=== PATIENT | female | born 1940 | race Caucasian/White ===

== ENCOUNTER 2021-12-27 18:35 | Observation (INO) | payer MEDICARE, BC ==
[~2021-12-27] VITALS: Ht 165.1 cm; Wt 88.4 kg
[2021-12-27 18:35] VITALS: BP 118/55; PULSE 67; TEMP 99.1
--- NOTE | 2021-12-27 18:35 | NUR ---
PT ADMITTED PER EMS STRETCHER TO ROOM 329. HAS PRBC'S INFUSING TO RFA IV SITE WITHOUT PROBLEM. HAS INT TO LFA. PT IS ALERT AND ORIENTED X4. ASKING FOR WATER.
[2021-12-27] MEDS ORDERED: DIOVAN HCT 25 M1 TA1 PO (19:52)
[2021-12-27] MEDS ORDERED: ADALAT CC30 MG PO (19:53)
[2021-12-27] MEDS ORDERED: ORENCIA CL125 MG/1 M SQ (19:53)
[2021-12-27] MEDS ORDERED: PLAVIX 75MG TAB75 MG PO (19:54)
[2021-12-27] MEDS ORDERED: BYSTOLIC5 MG PO (19:55)
[2021-12-27] MEDS ORDERED: K-TAB10 PO (19:55)
[2021-12-27] MEDS ORDERED: PRAVACHOL 20MG20 MG PO (19:56)
[2021-12-27] MEDS ORDERED: PREDNISONE 5MG5 MG PO (19:56)
[2021-12-27] MEDS ORDERED: ASPIRIN 81M81 MG/TA2 PO (19:57)
[2021-12-27] MEDS ORDERED: MASON NATURAL1200 MG PO (19:58)
--- NOTE | 2021-12-27 20:00 | NUR ---
ADMISSION QUESTIONS AND ASSESSMENT COMPLETED. UNIT OF BLOOD INFUSED. PT ASSISTED INTO HOSPITAL GOWN, STANDS WITHOUT DIZZINESS. IS ALERT AND ORIENTED X4.
--- NOTE | 2021-12-27 21:15 | NUR ---
IVF INITIATED TO LFA SITE, NO REDNESS OR SWELLING NOTED. HS MED PRAVACHOL GIVEN. IV PROTONIX ALSO GIVEN. PT TO HAVE IVF INFUSING AND WILL BE NPO AFTER MIDNIGHT.
[2021-12-27 22:16] LABS: HEMATOCRIT 27.6 % (37.0-47.0); HEMOGLOBIN 9.3 g/dl (12.5-16.0)
[2021-12-27 23:08] VITALS: BP 100/50; PULSE 63; TEMP 97.9
[2021-12-28] VITALS (13 sets, daily range): BP systolic 102–142; BP diastolic 41–73; PULSE 52–80; TEMP 97.6–98.8
--- NOTE | 2021-12-28 | NUR ---
PT NPO FOR POSSIBLE EGD TODAY.
--- NOTE | 2021-12-28 06:00 | NUR ---
PT HAS NOT HAD ANY EMESIS OR STOOLS THIS SHIFT.
[2021-12-28 06:39] LABS: BASO # 0.1 K/mm3 (0.0-0.2); BASO % 0.6 % (0.0-2.0); EOS # 0.1 K/mm3 (0.0-0.7); EOS % 1.3 % (0.0-4.0); GRAN # 4.3 K/mm3 (1.4-6.5); GRAN % 54.6 % (42.2-75.2); LYMPH # 2.6 K/mm3 (1.2-3.4); LYMPH % 33.2 % (20.0-51.0); MEAN CELL VOLUME 93 fl (80.0-100.0); MEAN CORPUSCULAR HGB CONC 32 g/dl (33.0-37.0); MEAN PLATELET VOLUME 11.5 fl (7.4-10.4); MONO # 0.8 K/mm3 (0.1-0.6); MONO % 9.9 % (1.7-9.3); PLATELET COUNT 199 K/mm3 (130-400); RED BLOOD COUNT 2.78 M/mm3 (4.10-5.30); REDCELL DISTRIBUTION WIDTH-CV 15.1 % (11.5-14.5)
[2021-12-28 06:45] LABS: HEMATOCRIT 25.9 % (37.0-47.0); HEMOGLOBIN 8.4 g/dl (12.5-16.0); MEAN CORPUSCULAR HEMOGLOBIN 30 pg (27-31)
[2021-12-28 06:57] LABS: CALCIUM 8.1 mg/dL (8.4-10.2); CREATININE, serum 0.71 mg/dL (0.57-1.11); MAGNESIUM 2.2 mg/dL (1.6-2.6); POTASSIUM 3.5 mmol/L (3.5-4.5)
--- NOTE | 2021-12-28 10:45 | NUR ---
Sales Broker met with patient to discuss discharge planning. Patient lives alone in [place] and sees Dr. Rivera for primary care. Patient obtains medications from [facility] in [place] with no difficulties and does not use any DME. Patient reports independence with ADLS and plans to return home at time of discharge. Patient advised she has DPOA-HC that designates her nephew, Terrell (ph#[phone]) who is a captain for [employer]. Patient is working on having her neighbor/best friend, Carole (ph#[phone]) bring in a copy of DPOA-HC. Discharge Plan: Home
--- NOTE | 2021-12-28 11:46 | NUR ---
PT ARRIVED TO THE FLOOR FROM [facility]IT AT 1055, INFORMED THAT SHE COULD RESUME HER DIET ORDERED, VITALS TAKEN, WILL CONTINUE TO MONITOR.
[2021-12-28 18:20] LABS: HEMATOCRIT 23.8 % (37.0-47.0); HEMOGLOBIN 7.9 g/dl (12.5-16.0)
--- NOTE | 2021-12-28 18:45 | NUR ---
NOTED EVENING HGB OF 7.9, CALLED RESULT TO HOSPITALIST, NO NEW ORDERS AT THIS TIME.
--- NOTE | 2021-12-28 19:30 | NUR ---
PT SBA TO BATHROOM, HAS LOOSE FORMED BLACK STOOL. PT DENIES DIZZINESS OR WEAKNESS WHEN UP. HAS IVF TO RFA, INFUSING WITHOUT PROBLEM.
--- NOTE | 2021-12-28 21:00 | NUR ---
PT HAS ANOTHER SOFT FORMED BLACK STOOL, NOT TARRY IN APPEARANCE. DENIES PAIN OR NAUSEA. HS MED GIVEN.
--- NOTE | 2021-12-29 00:20 | NUR ---
HGB=7.6, PT HAS NOT HAD ANY FURTHER STOOLS.
[2021-12-29 00:40] LABS: HEMATOCRIT 23.2 % (37.0-47.0); HEMOGLOBIN 7.6 g/dl (12.5-16.0)
[2021-12-29 03:19] VITALS: BP 123/60; PULSE 68; TEMP 98.9
--- NOTE | 2021-12-29 06:02 | NUR ---
NO FURTHER STOOLS THIS SHIFT. LABS DRAWN. IVF CONTINUE TO RFA.
[2021-12-29 06:09] LABS: BASO % 0.4 % (0.0-2.0); EOS # 0.2 K/mm3 (0.0-0.7); EOS % 3.3 % (0.0-4.0); GRAN # 2.5 K/mm3 (1.4-6.5); GRAN % 51.6 % (42.2-75.2); LYMPH # 1.7 K/mm3 (1.2-3.4); MEAN CELL VOLUME 95 fl (80.0-100.0); MEAN CORPUSCULAR HGB CONC 33 g/dl (33.0-37.0); MEAN PLATELET VOLUME 10.9 fl (7.4-10.4); MONO # 0.5 K/mm3 (0.1-0.6); MONO % 9.3 % (1.7-9.3); PLATELET COUNT 157 K/mm3 (130-400); RED BLOOD COUNT 2.39 M/mm3 (4.10-5.30); REDCELL DISTRIBUTION WIDTH-CV 14.6 % (11.5-14.5)
[2021-12-29 06:22] LABS: HEMATOCRIT 22.7 % (37.0-47.0); HEMOGLOBIN 7.4 g/dl (12.5-16.0); MEAN CORPUSCULAR HEMOGLOBIN 31 pg (27-31)
[2021-12-29 06:37] LABS: CALCIUM 8.1 mg/dL (8.4-10.2); CREATININE, serum 0.69 mg/dL (0.57-1.11); MAGNESIUM 2.1 mg/dL (1.6-2.6)
[2021-12-29 07:47] VITALS: BP 139/62; PULSE 63; TEMP 98.1
--- NOTE | 2021-12-29 09:43 | NUR ---
Pt doing well, Dr Hampton in to see pt. INT'd IV fluids per order. Discussed with pt about new orders for medications, lab work this afternoon and possible discharge following results. All questions answered. Pt did have breakfast and tolerated with no complaints
[2021-12-29] MEDS ORDERED: FERROUS SU325 MG/TAB PO (09:46)
--- NOTE | 2021-12-29 10:07 | NUR ---
Initial visit; Patient thanked Rn Document Improvement for looking in on her and offering prayer and God's blessings. Patient and Rn Document Improvement are acquainted so had a lot to visit about especially Lauren's adopted puppy. Rn Document Improvement offered Lauren God's blessings and a good recovery.
[2021-12-29 12:23] VITALS: BP 137/64; PULSE 65; TEMP 98.1
[2021-12-29 15:42] LABS: HEMATOCRIT 24.4 % (37.0-47.0)
[2021-12-29] MEDS ORDERED: PROTONIX 40MG T40 MG PO (16:03)
== END 2021-12-29 18:36 | disposition home or self-care (01) ==
LOC: SURG 18:35 → MEDICAL 18:46 → SURG 12-29 15:18
PROVIDERS: Student in an Organized Health Care Education/Training Program; ADMIT Internal Medicine
DX: K29.60 Other gastritis without bleeding (principal); K25.7 Chronic gastric ulcer without hemorrhage or perforation; D50.0 Iron deficiency anemia secondary to blood loss (chronic); Z87.891 Personal history of nicotine dependence; E78.5 Hyperlipidemia, unspecified; I25.10 Atherosclerotic heart disease of native coronary artery without angina pectoris; M06.9 Rheumatoid arthritis, unspecified; Z86.73 Personal history of transient ischemic attack (TIA), and cerebral infarction without residual deficits
CPT/HCPCS: C9113; G0378; J2704; J3010; J7030